=== PATIENT | male | born 1950 | race Caucasian/White ===

== ENCOUNTER → 2024-06-28 | Outpatient (CLI) | payer OTHER ==
[~2024-06-28] MED LIST: ALBU2TAB13 PO; ALLO100T PO; ASPI81CH48 PO; BUDE10.7 IH; D 1010004 PO; DEXA4TA PO; DICL100G10 TOP; FINA5TAB2 PO; FLOM0.4C39 PO; FOLI1TAB11 PO; MAGICMW SSP; MAGN400T2 PO; MELO15TA28 PO; METF750T36 PO; METO200T15 PO; MONT10TA97 PO; NICO21DI37 TOP; NICO2LOZ29 MT; NICO4GUM42 MT; OMEP-173 PO; ONDA-284 PO; POTA8CAP10 PO; PROC10TA5 PO; ROSU20TA61 PO; SILD100T PO; TRIA37.5 PO; VARE1TAB2 PO; VARE1TAB7 PO; [UNRECOGNIZED DRUG - OTHER]
== END ==
LOC: M PLARAD 10:44
PROVIDERS: ATTEND Internal Medicine Medical Oncology
DX: R42 Dizziness and giddiness (principal); C34.90 Malignant neoplasm of unspecified part of unspecified bronchus or lung

== ENCOUNTER → 2024-07-16 | Outpatient (CLI) | payer OTHER ==
[~2024-07-16] VITALS: Ht 172.7 cm; Wt 90.9 kg
[~2024-07-16] MED LIST changes: +LIDOCAINE 1% MDV 20ML VIAL As Ordered ONE; +MIDAZOLAM INJ 2MG/2ML VIAL As Ordered ONE; +NS 1,000 ML IV SCH; +VANCOMYCIN 1000MG/20ML VIAL As Ordered ONE; +fentaNYL 100 MCG/2 ML INJECTION As Ordered ONE
[2024-07-16 09:10] VITALS: TEMP 97.6
[2024-07-16] MEDS: VANCOMYCIN HCL 1,000 MG, VIAL MATE ADAPTER 1 EACH in NS 250 ML IV ONE (13:26)
[2024-07-16 15:00] VITALS: BP 149/87; O2SAT 96
== END ==
LOC: M IRPRO 08:54
PROVIDERS: ATTEND Dietitian, Registered
DX: C34.90 Malignant neoplasm of unspecified part of unspecified bronchus or lung (principal)
CPT/HCPCS: 36561; 99152; C1894; J1642; J2250; J3010; J3370

== ENCOUNTER → 2024-11-12 | Outpatient (CLI) | payer OTHER ==
[~2024-11-12] MED LIST changes: +AMPI500C9 PO; +BENZ200C70 PO; +LIDO15SO9 PO; +LIDO30CR18 TOP; -LIDOCAINE 1% MDV 20ML VIAL As Ordered ONE; -MIDAZOLAM INJ 2MG/2ML VIAL As Ordered ONE; -NS 1,000 ML IV SCH; +ORAL0.1P MT; -ROSU20TA61 PO; +ROSU20TA86 PO; -VANCOMYCIN 1000MG/20ML VIAL As Ordered ONE; -fentaNYL 100 MCG/2 ML INJECTION As Ordered ONE
== END ==
LOC: M ONCM 07:35
PROVIDERS: ATTEND Dietitian, Registered
DX: C34.90 Malignant neoplasm of unspecified part of unspecified bronchus or lung (principal); Z71.3 Dietary counseling and surveillance; Z68.29 Body mass index [BMI] 29.0-29.9, adult

== ENCOUNTER 2025-01-09 12:59 | Emergency (ER) | payer MEDICARE, OTHER ==
[~2025-01-09] VITALS: Ht 172.7 cm; Wt 86.4 kg
[~2025-01-09 12:59] MED LIST changes: -BUDE10.7 IH; +BUDE10.7 INH
[2025-01-09 13:55] LABS: VENOUS BASE EXCESS 1.2 (-2.0-2.0); VENOUS HCO3 25.9 MMOL/L (23.0-27.0); VENOUS O2 SATURATION 88.9 % (60.0-80.0); VENOUS PARTIAL PRESSURE CO2 41.6 mmHg (38.0-50.0); VENOUS PARTIAL PRESSURE O2 59.7 mmHg (30.0-50.0); VENOUS PH 7.412 UNITS (7.330-7.430); VENOUS STANDARD HCO3 25.4 MMOL/L; VENOUS TOTAL CO2 27.2 MMOL/L (24.0-28.0)
[2025-01-09 14:01] LABS: BASO % 0.3 % (0.0-1.0); EOS % 0.3 % (0.0-3.0); HEMATOCRIT 27.5 % (42.0-52.0); HEMOGLOBIN 8.7 g/dl (13.5-17.5); LYMPH # 0.6 10^3/uL (1.5-5.0); LYMPH % 17.2 % (24.0-44.0); MEAN CORPUSCULAR HEMOGLOBIN 31.4 pg (27.0-33.0); MEAN CORPUSCULAR HGB CONC 31.6 g/dl (32.0-36.5); MEAN CORPUSCULAR VOLUME 99.3 fl (80.0-96.0); MONO # 0.7 10^3/uL (0.0-0.8); NEUTROPHILS # 2.4 10^3/uL (1.5-8.5); NEUTROPHILS % 63.4 % (36.0-66.0); PLATELET COUNT, AUTOMATED 146 10^3/uL (150-450); RED BLOOD COUNT 2.77 10^6/uL (4.30-6.10); WHITE BLOOD COUNT 3.7 10^3/uL (4.0-10.0)
[2025-01-09] MEDS: IPRATROPIUM 0.5MG/ALBUTEROL 2.5MG INH SOL UD 3ML (DUONEB) NEB ONE ×2 (14:08→17:20)
[2025-01-09 14:14] LABS: INR 1.02; PARTIAL THROMBOPLASTIN TIME 31.8 SECONDS (24.8-34.2); PROTHROMBIN TIME 13.7 SECONDS (12.5-14.5)
[2025-01-09 14:26] LABS: ALBUMIN 2.5 G/DL (3.2-5.2); ALKALINE PHOSPHATASE 365 U/L (40-129); ALT/SGPT 44 U/L (7.0-40); AST/SGOT 40 U/L (<34); BILIRUBIN,DIRECT 0.2 MG/DL (<0.4); BILIRUBIN,TOTAL 0.4 MG/DL (0.3-1.2); BLOOD UREA NITROGEN 17 MG/DL (9-23); CALCIUM LEVEL 8.6 MG/DL (8.3-10.6); CARBON DIOXIDE LEVEL 29 MMOL/L (20-31); CHLORIDE LEVEL 100 MMOL/L (98-107); CK-MB VALUE MASS < 1.0 NG/ML (<3.6); CREATININE FOR GFR 0.93 MG/DL (0.70-1.30); GLOMERULAR FILTRATION RATE > 60.0 (>42); GLUCOSE, FASTING 152 MG/DL (74-106); POTASSIUM SERUM 3.9 MMOL/L (3.5-5.1); SODIUM LEVEL 135 MMOL/L (136-145)
[2025-01-09 14:28] LABS: THYROID STIMULATING HORMONE 1.796 uIU/ML (0.55-4.78)
[2025-01-09 14:29] LABS: FREE T4 1.09 NG/DL (0.89-1.76)
[2025-01-09 14:52] LABS: CPK CREATINE PHOSPHOKINASE 39 U/L (46-171); MB/CK RELATIVE INDEX 2.56 (< OR =4)
[2025-01-09] MEDS ORDERED: ISOVUE-370 76% 100ML VIAL As Ordered ONE (15:16)
[2025-01-09 15:31] LABS: CK-MB VALUE MASS < 1.0 NG/ML (<3.6)
[2025-01-09 15:33] LABS: CPK CREATINE PHOSPHOKINASE 43 U/L (46-171); MB/CK RELATIVE INDEX 2.32 (< OR =4)
[2025-01-09 16:37] VITALS: O2SAT 87
[2025-01-09 17:54] LABS: KETONE, URINE AUTO RFX NEGATIVE (NEGATIVE); LEUKOCYTE ESTERASE UR AUTO RFX NEGATIVE (NEGATIVE); MUCUS, URINE RFX SMALL (NEGATIVE); NITRITE, URINE AUTO RFX NEGATIVE (NEGATIVE); RBC, URINE AUTO RFX 0 /HPF (0-3); SQUAM EPITHELIAL CELL UR AURFX 0 /HPF (0-6); WBC, URINE AUTO RFX 1 /HPF (0-3)
[2025-01-09 18:03] LABS: PROCALCITONIN 0.21 ng/ml
[2025-01-09] MEDS ORDERED: PRED10TA2 PO (18:10)
[2025-01-09 19:00] VITALS: BP 122/59
[2025-01-09 19:02] VITALS: TEMP 97.9; O2SAT 89
[2025-01-09] MEDS ORDERED: ALBU8.5H INH (19:09)
[2025-01-09] MEDS ORDERED: HOME MED LIST COMPLETE! XX SCH (19:10)
== END 2025-01-09 19:12 | disposition home or self-care (01) ==
LOC: M ED 12:59
DX: R06.02 Shortness of breath (principal); C34.90 Malignant neoplasm of unspecified part of unspecified bronchus or lung; D64.9 Anemia, unspecified; I49.1 Atrial premature depolarization; E11.9 Type 2 diabetes mellitus without complications; I10 Essential (primary) hypertension; E78.5 Hyperlipidemia, unspecified; J44.9 Chronic obstructive pulmonary disease, unspecified; F17.200 Nicotine dependence, unspecified, uncomplicated; Z88.0 Allergy status to penicillin; Z88.2 Allergy status to sulfonamides; Z88.8 Allergy status to other drugs, medicaments and biological substances; Z79.52 Long term (current) use of systemic steroids; Z79.82 Long term (current) use of aspirin; Z79.83 Long term (current) use of bisphosphonates; Z79.899 Other long term (current) drug therapy
CPT/HCPCS: 36415; 71045; 71275; 80048; 80076; 81001; 82550; 82553; 82803; 83605; 83880; 84145; 84439; 84443; 84484; 85025; 85610; 85730; 87040; 87486; 87581; 87633; 87798; 93005; 93041; 94640; 94760; 99285; Q9967

== ENCOUNTER 2025-02-05 11:37 | Emergency (ER) | payer OTHER ==
[~2025-02-05] VITALS: Ht 172.7 cm; Wt 83.5 kg
[~2025-02-05 11:37] MED LIST changes: +ALBU8.5H INH; -FLOM0.4C39 PO; +PRED10TA2 PO; +TAMS-18 PO
[2025-02-05] MEDS: methylPREDNISolone 125MG 2ML VIAL IV ONE (12:34)
[2025-02-05 12:36] LABS: VENOUS BASE EXCESS 1.4 (-2.0-2.0); VENOUS O2 SATURATION 98.5 % (60.0-80.0); VENOUS PARTIAL PRESSURE CO2 40.8 mmHg (38.0-50.0); VENOUS PARTIAL PRESSURE O2 138.6 mmHg (30.0-50.0); VENOUS PH 7.422 UNITS (7.330-7.430); VENOUS STANDARD HCO3 25.8 MMOL/L; VENOUS TOTAL CO2 27.2 MMOL/L (24.0-28.0)
[2025-02-05 12:37] LABS: BASO % 0.1 % (0.0-1.0); EOS % 0.1 % (0.0-3.0); HEMATOCRIT 35.5 % (42.0-52.0); HEMOGLOBIN 11.5 g/dl (13.5-17.5); LYMPH # 0.3 10^3/uL (1.5-5.0); LYMPH % 2.7 % (24.0-44.0); MEAN CORPUSCULAR HEMOGLOBIN 32.5 pg (27.0-33.0); MEAN CORPUSCULAR HGB CONC 32.4 g/dl (32.0-36.5); MEAN CORPUSCULAR VOLUME 100.3 fl (80.0-96.0); MONO # 0.4 10^3/uL (0.0-0.8); MONO % 2.9 % (2.0-8.0); NEUTROPHILS # 11.5 10^3/uL (1.5-8.5); NEUTROPHILS % 93.6 % (36.0-66.0); PLATELET COUNT, AUTOMATED 108 10^3/uL (150-450); RED BLOOD COUNT 3.54 10^6/uL (4.30-6.10); WHITE BLOOD COUNT 12.2 10^3/uL (4.0-10.0)
[2025-02-05 12:49] LABS: INR 0.92; PROTHROMBIN TIME 12.7 SECONDS (12.5-14.5)
[2025-02-05 13:01] LABS: ALBUMIN 3.2 G/DL (3.2-5.2); ALKALINE PHOSPHATASE 514 U/L (40-129); ALT/SGPT 129 U/L (7.0-40); AST/SGOT 61 U/L (<34); BILIRUBIN,DIRECT 0.2 MG/DL (<0.4); BILIRUBIN,TOTAL 0.5 MG/DL (0.3-1.2); BLOOD UREA NITROGEN 21 MG/DL (9-23); CALCIUM LEVEL 9.2 MG/DL (8.3-10.6); CARBON DIOXIDE LEVEL 31 MMOL/L (20-31); CHLORIDE LEVEL 96 MMOL/L (98-107); CK-MB VALUE MASS < 1.0 NG/ML (<3.6); CREATININE FOR GFR 0.73 MG/DL (0.70-1.30); GLOMERULAR FILTRATION RATE > 90.0 (>42); GLUCOSE, FASTING 151 MG/DL (74-106); POTASSIUM SERUM 4.4 MMOL/L (3.5-5.1); SODIUM LEVEL 135 MMOL/L (136-145); TOTAL PROTEIN 6.4 G/DL (5.7-8.2)
[2025-02-05 13:05] LABS: THYROXINE (T4) 8.2 UG/DL (4.5-10.9)
[2025-02-05 13:06] LABS: THYROID STIMULATING HORMONE 2.202 uIU/ML (0.55-4.78)
[2025-02-05 13:11] LABS: CPK CREATINE PHOSPHOKINASE 32 U/L (46-171); MB/CK RELATIVE INDEX 3.12 (< OR =4)
[2025-02-05] MEDS ORDERED: ISOVUE-370 76% 100ML VIAL As Ordered ONE (13:25)
[2025-02-05] MEDS: IPRATROPIUM 0.5MG/ALBUTEROL 2.5MG INH SOL UD 3ML NEB ONE (14:43)
[2025-02-05] MEDS: ALBUTEROL SULFATE 2.5MG/0.5ML INH CONCENTRATE NEB SOLN NEB ONE (14:44)
[2025-02-05] MEDS ORDERED: NEBU1EAC78 MC (15:07)
[2025-02-05] MEDS ORDERED: PRED20TA PO (15:07)
[2025-02-05] MEDS ORDERED: IPRA0.00 INH (15:07)
[2025-02-05] MEDS ORDERED: [UNRECOGNIZED DRUG - CODE] XX (15:07)
[2025-02-05 15:59] VITALS: BP 126/69; TEMP 97; O2SAT 92
[2025-02-13] MEDS ORDERED: PRED10TA2 PO (10:28)
== END 2025-02-05 16:01 | disposition home or self-care (01) ==
LOC: M ED 11:37
DX: J44.1 Chronic obstructive pulmonary disease with (acute) exacerbation (principal); R00.0 Tachycardia, unspecified; C34.90 Malignant neoplasm of unspecified part of unspecified bronchus or lung; I10 Essential (primary) hypertension; E78.5 Hyperlipidemia, unspecified; Z79.52 Long term (current) use of systemic steroids; Z79.82 Long term (current) use of aspirin; Z79.83 Long term (current) use of bisphosphonates; Z79.899 Other long term (current) drug therapy; Z88.0 Allergy status to penicillin; Z88.2 Allergy status to sulfonamides; Z88.8 Allergy status to other drugs, medicaments and biological substances
CPT/HCPCS: 71046; 71275; 80048; 80076; 82550; 82553; 82803; 83605; 83880; 84436; 84443; 84484; 85025; 85610; 87040; 87076; 87077; 87154; 87486; 87581; 87633; 87798; 93005; 93041; 94640; 94760; 96374; 99285; J2919; Q9967

== ENCOUNTER 2025-04-24 10:50 | Outpatient (RCR) | payer OTHER ==
[~2025-04-24 10:50] MED LIST changes: +ALBU2.5V10 NEB; +ATIV1TAB10 PO; +CEFD300CAP PO; +DOXY100T PO; +FURO20TA2 PO; +IPRA0.00 INH; +MORP1SOL5 PO; +NEBU1EAC78 MC; +NICO2LOZ MT; +PRED20TA PO; +RISATAB3 PO; +[UNRECOGNIZED DRUG - CODE] XX
[2025-04-27] MEDS ORDERED: PRED10TA2 PO (01:03)
[2025-04-27] MEDS ORDERED: ATIV1TAB10 PO (01:03)
== END 2025-04-30 | disposition expired ==
LOC: M ONCR 10:50
PROVIDERS: ATTEND General Practice
DX: Z51.0 Encounter for antineoplastic radiation therapy (principal); C34.31 Malignant neoplasm of lower lobe, right bronchus or lung

== ENCOUNTER 2025-04-26 18:27 | Inpatient (IN) | payer OTHER ==
[~2025-04-26] VITALS: Ht 172.7 cm; Wt 74.7 kg
[2025-04-26 19:07] LABS: VENOUS BASE EXCESS 3.5 (-2.0-2.0); VENOUS HCO3 28.8 MMOL/L (23.0-27.0); VENOUS O2 SATURATION 83.2 % (60.0-80.0); VENOUS PARTIAL PRESSURE CO2 46.8 mmHg (38.0-50.0); VENOUS PARTIAL PRESSURE O2 48.0 mmHg (30.0-50.0); VENOUS PH 7.407 UNITS (7.330-7.430); VENOUS STANDARD HCO3 27.2 MMOL/L; VENOUS TOTAL CO2 30.2 MMOL/L (24.0-28.0)
[2025-04-26] MEDS: IPRATROPIUM 0.5 MG/ALBUTEROL 2.5 MG INH SOL UD 3 ML NEB ONE ×3 (19:13→21:40)
[2025-04-26 19:17] LABS: BASO # 0.0 10^3/uL (0.0-0.2); BASO % 0.0 % (0.0-1.0); EOS # 0.0 10^3/uL (0.0-0.5); EOS % 0.0 % (0.0-3.0); LYMPH # 0.4 10^3/uL (1.5-5.0); LYMPH % 3.5 % (24.0-44.0); MONO # 0.9 10^3/uL (0.0-0.8); MONO % 8.0 % (2.0-8.0); NEUTROPHILS # 9.4 10^3/uL (1.5-8.5); NEUTROPHILS % 87.9 % (36.0-66.0); PLATELET COUNT, AUTOMATED 221 10^3/uL (150-450)
[2025-04-26 19:34] LABS: ALT/SGPT 25.0 U/L (7.0-40); AST/SGOT 40.0 U/L (<34); CALCIUM LEVEL 9.5 MG/DL (8.3-10.6); CARBON DIOXIDE LEVEL 28.0 MMOL/L (20-31); CHLORIDE LEVEL 97.0 MMOL/L (98-107); CREATININE FOR GFR 0.95 MG/DL (0.70-1.30); GLOMERULAR FILTRATION RATE 83.5 (>42); POTASSIUM SERUM 3.9 MMOL/L (3.5-5.1); SODIUM LEVEL 135.0 MMOL/L (136-145)
[2025-04-26] MEDS ORDERED: ISOVUE-370 76% 100 ML VIAL As Ordered ONE (19:42)
[2025-04-26 19:53] LABS: CK-MB VALUE MASS 1.6 NG/ML (<3.6)
[2025-04-26 20:05] LABS: CPK CREATINE PHOSPHOKINASE 24.0 U/L (46-171); MB/CK RELATIVE INDEX 6.66 (< OR =4)
[2025-04-26 20:59] LABS: CK-MB VALUE MASS 1.5 NG/ML (<3.6); CPK CREATINE PHOSPHOKINASE 20.0 U/L (46-171); MB/CK RELATIVE INDEX 7.5 (< OR =4)
[2025-04-26] MEDS ORDERED: ACETAMINOPHEN 325 MG TAB PO PRN (22:50)
[2025-04-26] MEDS ORDERED: MOM 30 ML SUSPENSION UDC PO PRN (22:50)
[2025-04-26] MEDS ORDERED: DEXTROSE 50% 50 ML SYRINGE IV PRN (23:00)
[2025-04-26] MEDS ORDERED: GLUCOSE 4 GM CHEW PO PRN (23:00)
[2025-04-26] MEDS ORDERED: GLUCAGON INJ 1 MG VIAL SC PRN (23:00)
[2025-04-27 00:27] VITALS: BP 120/67; TEMP 97.4; O2SAT 95
[2025-04-27] MEDS ORDERED: PRED10TA2 PO (01:03)
[2025-04-27] MEDS ORDERED: ATIV1TAB10 PO (01:03)
[2025-04-27] MEDS ORDERED: HOME MED LIST COMPLETE! XX SCH (01:05)
[2025-04-27 04:43] VITALS: BP 116/65; TEMP 97.9; O2SAT 94
[2025-04-27 06:12] LABS: PLATELET COUNT, AUTOMATED 181 10^3/uL (150-450)
[2025-04-27 06:52] LABS: ALT/SGPT 17.0 U/L (7.0-40); AST/SGOT 31.0 U/L (<34); CALCIUM LEVEL 9.3 MG/DL (8.3-10.6); CARBON DIOXIDE LEVEL 28.0 MMOL/L (20-31); CHLORIDE LEVEL 98.0 MMOL/L (98-107); CREATININE FOR GFR 0.95 MG/DL (0.70-1.30); GLOMERULAR FILTRATION RATE 83.5 (>42); POTASSIUM SERUM 3.9 MMOL/L (3.5-5.1); SODIUM LEVEL 135.0 MMOL/L (136-145)
[2025-04-27 07:21] VITALS: BP 111/63; TEMP 97.3; O2SAT 96
[2025-04-27] MEDS: INSULIN LISPRO (NovoLOG) PER UNIT SC SCH ×2 (07:30→20:20)
[2025-04-27] MEDS: FUROSEMIDE 20 MG TAB PO SCH (09:00)
[2025-04-27] MEDS: POTASSIUM CHLORIDE 10MEQ SR TABLET PO SCH (09:00)
[2025-04-27] MEDS: ENOXAPARIN 40 MG/0.4 ML SYRINGE (J1650 PER 10MG) SC SCH (09:00)
[2025-04-27] MEDS: TRIAMTERENE/hydroCHLOROthiazide 37.5/25 MG CAPSULE PO SCH (09:00)
[2025-04-27] MEDS ORDERED: FUROSEMIDE 40 MG TAB PO SCH (09:00)
[2025-04-27] MEDS: DOCUSATE SODIUM 100 MG CAPSULE PO SCH (09:28)
[2025-04-27] MEDS: predniSONE 20 MG TAB PO SCH (09:28)
[2025-04-27] MEDS: IPRATROPIUM 0.5 MG/ALBUTEROL 2.5 MG INH SOL UD 3 ML NEB PRN (09:42)
[2025-04-27 11:14] VITALS: BP 115/63; TEMP 96.6; O2SAT 98
[2025-04-27] MEDS ORDERED: PROCHLORPERAZINE 5MG TAB PO PRN (15:05)
[2025-04-27] MEDS ORDERED: ONDANSETRON 4MG ORAL DISINTEGRATING TAB PO PRN (15:05)
[2025-04-27] MEDS: ASPIRIN 81 MG ENTERIC TABLET PO SCH (15:40)
[2025-04-27] MEDS: TAMSULOSIN 0.4 MG CAP PO SCH (15:40)
[2025-04-27] MEDS: MORPHINE 10 MG/0.5 ML ORAL CONCENTRATE SOLUTION U/D PO PRN (15:40)
[2025-04-27] MEDS: FOLIC ACID 1 MG TAB PO SCH (15:41)
[2025-04-27] MEDS: OMEPRAZOLE 20MG CAP PO SCH (15:41)
[2025-04-27] MEDS: ROSUVASTATIN 10 MG TAB PO SCH (15:41)
[2025-04-27] MEDS: FINASTERIDE 5 MG TAB PO SCH (15:42)
[2025-04-27] MEDS: LORazepam 0.5 MG TAB PO PRN (15:42)
[2025-04-27 19:25] VITALS: BP 130/70; TEMP 98.8; O2SAT 98
[2025-04-27] MEDS: METOPROLOL SUCC. 100 MG *XL* TAB PO SCH (20:50)
[2025-04-27 23:23] VITALS: BP 122/69; TEMP 96.4; O2SAT 93
[2025-04-28] VITALS (9 sets, daily range): BP systolic 103–128; BP diastolic 55–80; TEMP 96.3–97.7; O2SAT 65–100
[2025-04-28] MEDS: guaiFENesin SYRUP 200 MG/10 ML UDC PO PRN (00:27)
[2025-04-28] MEDS ORDERED: predniSONE 10 MG TAB PO SCH (09:00)
[2025-04-28] MEDS: MONTELUKAST 10 MG TAB PO SCH (09:00)
[2025-04-28 09:10] LABS: ABG BASE EXCESS 3.3 (-2.0-2.0); ABG HCO3 32.3 MMOL/L (22.0-26.0); ABG O2 SATURATION 88.1 % (95.0-99.0); ABG PARTIAL PRESSURE O2 64.8 mmHg (75.0-100.0); ABG STANDARD HCO3 27.3 MMOL/L. (22.0-26.0); ABG TOTAL CO2 34.6 MMOL/L (23.0-31.0); ABG pH (ARTERIAL) 7.252 UNITS (7.350-7.450)
[2025-04-28 09:13] LABS: ABG PARTIAL PRESSURE CO2 74.9 mmHg (35.0-45.0)
[2025-04-28] MEDS: FUROSEMIDE 40 MG/4 ML VIAL IV ONE (10:05)
[2025-04-28] MEDS: MORPHINE 2 MG/ML 1 ML VIAL IV ONE (10:30)
[2025-04-28] MEDS: ENOXAPARIN 80 MG/0.8 ML SYRINGE (J1650 PER 10MG) SC ONE (10:35)
[2025-04-28 10:38] LABS: BASO # 0.0 10^3/uL (0.0-0.2); BASO % 0.2 % (0.0-1.0); EOS # 0.0 10^3/uL (0.0-0.5); EOS % 0.0 % (0.0-3.0); LYMPH # 0.4 10^3/uL (1.5-5.0); LYMPH % 1.9 % (24.0-44.0); MONO # 1.0 10^3/uL (0.0-0.8); MONO % 4.7 % (2.0-8.0); NEUTROPHILS # 18.8 10^3/uL (1.5-8.5); NEUTROPHILS % 92.2 % (36.0-66.0); PLATELET COUNT, AUTOMATED 256 10^3/uL (150-450)
[2025-04-28 11:06] LABS: CK-MB VALUE MASS 2.5 NG/ML (<3.6)
[2025-04-28 11:08] LABS: CPK CREATINE PHOSPHOKINASE 32 U/L (46-171); MB/CK RELATIVE INDEX 7.81 (< OR =4)
[2025-04-28 11:09] LABS: ALT/SGPT 20 U/L (7.0-40); AST/SGOT 34 U/L (<34); CALCIUM LEVEL 9.7 MG/DL (8.3-10.6); CARBON DIOXIDE LEVEL 36 MMOL/L (20-31); CHLORIDE LEVEL 96 MMOL/L (98-107); CREATININE FOR GFR 0.80 MG/DL (0.70-1.30); GLOMERULAR FILTRATION RATE > 90.0 (>42); POTASSIUM SERUM 4.2 MMOL/L (3.5-5.1); SODIUM LEVEL 141 MMOL/L (136-145)
[2025-04-28] MEDS: IPRATROPIUM 0.5 MG/ALBUTEROL 2.5 MG INH SOL UD 3 ML NEB SCH (12:18)
[2025-04-28] MEDS: ENOXAPARIN 80 MG/0.8 ML SYRINGE (J1650 PER 10MG) SC SCH (21:19)
[2025-04-29 03:15] VITALS: BP 125/73; TEMP 96.5; O2SAT 100
[2025-04-29 07:33] VITALS: BP 135/77; TEMP 96.6; O2SAT 99
[2025-04-29 07:45] LABS: ABG BASE EXCESS 2.6 (-2.0-2.0); ABG HCO3 31.8 MMOL/L (22.0-26.0); ABG O2 SATURATION 99.3 % (95.0-99.0); ABG PARTIAL PRESSURE O2 236.6 mmHg (75.0-100.0); ABG STANDARD HCO3 26.8 MMOL/L. (22.0-26.0); ABG TOTAL CO2 34.1 MMOL/L (23.0-31.0)
[2025-04-29 07:48] LABS: ABG pH (ARTERIAL) 7.237 UNITS (7.350-7.450)
[2025-04-29 07:49] LABS: ABG PARTIAL PRESSURE CO2 76.4 mmHg (35.0-45.0)
[2025-04-29 07:56] LABS: BASO # 0.0 10^3/uL (0.0-0.2); BASO % 0.1 % (0.0-1.0); EOS # 0.0 10^3/uL (0.0-0.5); EOS % 0.1 % (0.0-3.0); LYMPH # 0.1 10^3/uL (1.5-5.0); LYMPH % 0.8 % (24.0-44.0); MONO # 0.4 10^3/uL (0.0-0.8); MONO % 3.9 % (2.0-8.0); NEUTROPHILS # 9.1 10^3/uL (1.5-8.5); NEUTROPHILS % 94.6 % (36.0-66.0); PLATELET COUNT, AUTOMATED 160 10^3/uL (150-450)
[2025-04-29 08:30] LABS: ALT/SGPT 20 U/L (7.0-40); AST/SGOT 31 U/L (<34); CALCIUM LEVEL 9.2 MG/DL (8.3-10.6); CARBON DIOXIDE LEVEL 36 MMOL/L (20-31); CHLORIDE LEVEL 97 MMOL/L (98-107); CREATININE FOR GFR 0.73 MG/DL (0.70-1.30); GLOMERULAR FILTRATION RATE > 90.0 (>42); MAGNESIUM LEVEL 1.7 MG/DL (1.8-2.4); POTASSIUM SERUM 4.6 MMOL/L (3.5-5.1); SODIUM LEVEL 137 MMOL/L (136-145)
[2025-04-29 08:53] VITALS: BP 129/68
[2025-04-29] MEDS: MAG SULF 1GM/100ML (MAG RUN) 1 GM in IV 1 EA IV ONE (09:07)
[2025-04-29] MEDS ORDERED: POLYVINYL ALCOHOL OPHTH SOLN 15ML (LIQUITEARS) OU PRN (11:10)
[2025-04-29] MEDS ORDERED: SALIVA SUBSTITUTE BTL MT PRN (11:10)
[2025-04-29] MEDS ORDERED: HALOPERIDOL 2 MG TAB PO PRN (11:10)
[2025-04-29] MEDS ORDERED: HYOSCYAMINE SULFATE 0.125 MG SUBL TABLET SL PRN (11:10)
[2025-04-29] MEDS: LORazepam 1 MG TAB PO SCH (12:16)
[2025-04-29] MEDS: MORPHINE 10 MG/0.5 ML ORAL CONCENTRATE SOLUTION U/D SL SCH (12:17)
[2025-04-29] MEDS: ONDANSETRON 4MG ORAL DISINTEGRATING TAB PO SCH (12:17)
[2025-04-29] MEDS: MORPHINE 10 MG/0.5 ML ORAL CONCENTRATE SOLUTION U/D SL PRN (14:17)
[2025-04-29] MEDS: LORazepam 1 MG TAB PO PRN (14:17)
[2025-04-29] MEDS: OLANZapine ORAL DISINTEGRATING TAB 5MG PO SCH (21:00)
== END 2025-04-30 04:52 | disposition expired | DRG 190 ==
LOC: M ED 18:27 → M ED INP 22:49 → M PCU 04-27 00:27
PROVIDERS: ADMIT Family Medicine; ATTEND Internal Medicine
DX: J44.1 Chronic obstructive pulmonary disease with (acute) exacerbation (principal); J96.21 Acute and chronic respiratory failure with hypoxia; J96.02 Acute respiratory failure with hypercapnia; G93.41 Metabolic encephalopathy; C34.90 Malignant neoplasm of unspecified part of unspecified bronchus or lung; C78.7 Secondary malignant neoplasm of liver and intrahepatic bile duct; D84.9 Immunodeficiency, unspecified; R44.3 Hallucinations, unspecified; I10 Essential (primary) hypertension; E11.9 Type 2 diabetes mellitus without complications; E78.5 Hyperlipidemia, unspecified; F17.210 Nicotine dependence, cigarettes, uncomplicated; B34.8 Other viral infections of unspecified site; Z92.21 Personal history of antineoplastic chemotherapy; Z88.0 Allergy status to penicillin; Z88.2 Allergy status to sulfonamides; Z88.8 Allergy status to other drugs, medicaments and biological substances; Z79.899 Other long term (current) drug therapy; Z79.82 Long term (current) use of aspirin; Z66 Do not resuscitate